=== PATIENT | male | born 1950 | race Caucasian/White ===

== ENCOUNTER → 2016-05-13 | Day surgery (SDC) | payer BC ==
[2016-05-03 13:23] VITALS: Ht 171.5 cm; Wt 80.9 kg
--- NOTE | 2016-05-12 12:48 | History and Physical: Surg Cnt ---
History & Physical Date May 12, 2016. Chief Complaint nasal and ears blocked, sinusitis History of Present Illness The patient is a 65 year old male with complaints of chronic sinusitis and blocked ears Allergies Coded Allergies: Dust Mite Extract (Verified Allergy, Mild, ITCHY WATERY EYES, NASAL CONGESTION, 05/03/16) POLLEN (Verified Allergy, Mild, ITCHY, WATERY EYES,NASAL CONGESTION, ) NO KNOWN DRUG ALLERGIES (Verified Allergy, Unknown, ., 05/03/16) Home Medications Scheduled Azelastine Hcl (Astepro), 1 SPRAY WILLIAM BID Calcium/Vitamin D (Os-Lam 500 Plus D), 1 TAB PO DAILY Cyanocobalamin (Vitamin B-12 1000 Mcg), 1,000 MCG PO DAILY Diclofenac/Misoprostol Del Rel (Arthrotec *), 75 MG PO BID Esomeprazole Magnesium (Nexium), 40 MG PO QAM Fish Oil ([place]-3), 1 CAP PO DAILY Fluticasone Furoate (Veramyst), 2 SPRY WILLIAM DAILY Fluticasone Prop/Salmeterol (Advair Diskus 250/50 Mcg *), 1 PUFF INH BID Guaifenesin (Guaifenesin), 400 MG PO TID Multiple Vitamin (Multivitamin), 1 TAB PO DAILY Saline (Saline Nasal [place]), 1 SPRAY WILLIAM UD Scheduled PRN Albuterol Hfa (Ventolin Hfa), 2-4 PUFFS INH Q6H PRN for SOB/Wheezing Fexofenadine Hcl (Ariadna *), 180 MG PO DAILY PRN for ALLERGIES Diagnosis chronic sinusitis, septal dev., and blocked eustachian tubes Plan of Treatment endoscopic sinus surgery, septoplasty, balloon eustachian tubes
[~2016-05-13] VITALS: Ht 171.5 cm; Wt 80.9 kg
[~2016-05-13] MED LIST: ADVIN25050 INH; ALL180 PO; ATROPINE SULFATE 0.1 MG/ML 5ML SYR IV PRN; AZEL0.15 NAE; BACITRACIN OINT 15 GM TUBE ONE; CALC500C70 PO; CEFAZOLIN 2000 MG/60 ML D5W IV SCH; CYAN10004 PO; DEXAMETHASONE SOD INJ 4 MG/ML VIAL ONE; EpHEDrine SULFATE INJ 50 MG/ML AMP IV PRN; EpINEphrine INJ 1MG/ML AMP 1 MG/ML AMP ONE; FENTANYL CITRATE INJ 50 MCG/1 ML 2 ML VIAL IV PRN; FENTANYL CITRATE INJ 50 MCG/1 ML 2 ML VIAL ONE; FLUMAZENIL 0.1 MG/1 ML 10 ML VIAL IV PRN; FLUT27.5 NAE; GELATIN SPONGE 12-7MM ONE; GUAI1TAB27 PO; HYDROCODONE/ACETAMOPHEN 5/325MG TAB PO PRN; HYDROmorphone INJ 2 MG/ML SYR/VIAL IV PRN; LABETALOL HCL IV 5 MG/ML 20ML IV PRN; LACTATED RINGER'S 1000ML 1,000 ML IV SCH; LIDO 2%/EPINEPHRINE 1:100000 20 ML VIAL INFIL ONE; LIDOCAINE 4% MPF SOAK 5 ML = 1 DOSE TOP ONE; LIDOCAINE HCL 2% 2 ML VIAL (20MG/ML) ONE; MEPERIDINE HCL 25 MG/ML CARP IV PRN; MIDAZOLAM HCL 1 MG/ML 2ML VIAL ONE; MULTTAB58 PO; NALOXONE HCL 0.4 MG/1 ML VIAL/CARP IV PRN; NXM/40 PO; OMEG10007 PO; ONDANSETRON INJ 2 MG/ML 2 ML VIAL IV PRN; ONDANSETRON INJ 2 MG/ML 2 ML VIAL ONE; OXYC-57 PO; OXYMETAZOLINE HCL 0.05% NA SPR 15 ML BTL SCH; PHENYLEPHRINE 100MCG/ML 5ML SYR IV PRN; PROPOFOL IV EMULSION 10 MG/ML 20 ML VIAL IV ONE; SALI1SPR3 NAE; SODIUM CHLORIDE 0.9% 1000ML 1,000 ML IV SCH; VNTHFA/IN INH; [UNRECOGNIZED DRUG - CODE] PO
--- NOTE | 2016-05-13 06:46 | History & Physical Bridge Note ---
H&P Re-Evaluation Bridge Note: I have examined the patient, reviewed the History & Physical and in the interval since the performance of the History & Physical I have noted the following changes of clinical significance: No changes noted
--- NOTE | 2016-05-13 10:58 | Discharge Instructions-SurgCtr ---
Discharge Instructions Visit Reason for Visit: Chronic Sinusitis, Septal Deviation, Blocked Eusta Discharge Discharge Diagnosis / Problem: same Discharge Goals Goal(s): Improve function Activity Recommendations Activity Limitations: resume your previous activity Anesthesia . Post Anesthesia Instructions: If you have had General Anesthesia or IV Sedation: * Do not drive today. * Resume driving when surgeon permits. * Do not make important decisions or sign legal documents today. * Call surgeon for: 1. Temperature elevations greater than 101 degrees F. 2. Uncontrollable pain. 3. Excessive bleeding. 4. Persistent nausea and vomiting. 5. Medication intolerance (nausea, vomiting or rash). * For nausea and vomiting use only clear liquids such as: tea, soda, bouillon until nausea subsides, then gradually increase diet as tolerated. * If you have any concerns or questions, call your surgeon's office. If physician is unavailable and it is an emergency, call 911 or go to the nearest emergency room. . Diet Recommendations Home Diet: no limitations Pending Studies Studies pending at discharge: no Medical Emergencies . Who to Call and When: Medical Emergencies: If at any time you feel your situation is an emergency, please call 911 immediately. . Non-Emergent Contact Non-Emergency issues call your: Primary Care Provider . . "Provider Documentation" section prepared by Megan Salomon. PA Drug Monitoring Program Search Results: no issues identified
--- NOTE | 2016-05-13 11:04 | Discharge Instructions-SurgCtr ---
Discharge Instructions Visit Reason for Visit: Chronic Sinusitis, Septal Deviation, Blocked Eusta Anesthesia . Post Anesthesia Instructions: If you have had General Anesthesia or IV Sedation: * Do not drive today. * Resume driving when surgeon permits. * Do not make important decisions or sign legal documents today. * Call surgeon for: 1. Temperature elevations greater than 101 degrees F. 2. Uncontrollable pain. 3. Excessive bleeding. 4. Persistent nausea and vomiting. 5. Medication intolerance (nausea, vomiting or rash). * For nausea and vomiting use only clear liquids such as: tea, soda, bouillon until nausea subsides, then gradually increase diet as tolerated. * If you have any concerns or questions, call your surgeon's office. If physician is unavailable and it is an emergency, call 911 or go to the nearest emergency room. . Instructions / Follow-Up Instructions / Follow-Up ACTIVITY RECOMMENDATIONS: * Being up and around is good, but no strenuous activity, heavy lifting or physical exertion for one week. * Keep your head elevated 30 degrees when lying down or sleeping. * Do not blow your nose for 48 hours, sniff back instead. * Avoid hot showers. OVER THE COUNTER MEDICATIONS: * You may use Tylenol * Avoid aspirin or aspirin containing products, e.g. as they may increase bleeding. SPECIAL CARE INSTRUCTIONS: * Expect to have bloody drainage from your nose and/or down your throat for one to three days. Change drip pad as needed. * Begin irrigating your nose with saline solution today, at least six to ten times per day and sniff back to help remove old clots or crust. * You may experience nasal and facial congestion, pain and pressure, this is normal. * Please call with any significant and/or progressive pain, redness, swelling around the eyes, visual changes, fever of 101.5 degrees F, active bleeding or any problems or concerns. * If active bleeding occurs, spray the nose three times at one minute intervals with Afrin spray and call or cell phone: . If unable to reach the doctor, go to the nearest Emergency Department. Special Diet: * Avoid extremely hot fluids. FOLLOW UP VISIT: Follow-up Visit with Dr. Salomon If not already scheduled, please call to schedule. Medical Emergencies . Who to Call and When: Medical Emergencies: If at any time you feel your situation is an emergency, please call 911 immediately. . Non-Emergent Contact . . "Provider Documentation" section prepared by Megan Salomon.
[2016-05-13 13:06] VITALS: TEMP 37.4
--- NOTE | 2016-05-13 13:20 | OPERATIVE REPORT ---
DATE OF OPERATION: 05/13/2016 PREOPERATIVE DIAGNOSES: Chronic sinusitis and eustachian tube dysfunction and septal deviation. POSTOPERATIVE DIAGNOSIS: Same. PROCEDURE: Right and left frontal, right and left sphenoid, right and left total ethmoid and right and left maxillary sinus antrostomies with endoscopic septoplasty and balloon dilation of the eustachian tubes. SURGEON: Dr. Salomon. ANESTHESIA: General LMA. COMPLICATIONS: None. BLOOD LOSS: 100 mL. HISTORY OF PRESENT ILLNESS: A 65-year-old gentleman with significant recurrent chronic sinusitis, previous turbinate resection and then antrostomies, adhesion on the right side of the septum, CT documented opacification. He also has complained of persistently blocked ears. DESCRIPTION OF PROCEDURE: The patient brought to the supine position. General anesthesia was induced using LMA, prepped, draped in usual sterile manner, BrainLAB device calibrated and used for the entire procedure. The right sphenoid cannulated guidewire, dilated using a 6 mm balloon as was the left sphenoid sinus. The sphenoids were irrigated clean with saline. The right nasofrontal duct was cannulated with guidewire, dilated using the 6 mm balloon. The guidewire was left in place as a marker. Frontal sinusotomy was performed by removing the anterior wall, then the posterior wall of the agger nasi cell. The guidewire was followed superiorly, removing the posterior wall of the agger nasi cell to open up the nasofrontal duct. At this point, total ethmoidectomy was performed opening up the bullae ethmoidalis going through the ground lamella into the posterior ethmoid air cells and finding the skull base and lamina papyracea with the BrainLAB device following these structures anteriorly exonerating all the posterior and all the anterior ethmoid air cells which were all filled with polypoid mucosa. Maxillary sinus was found using the seeker and then opened to a natural maxillary ostia using the shaver removing polypoid mucosa at the posterior border and at the anterior border. Sphenoid was opened by removing polypoid mucosa at the anterior face of the sphenoid. Left frontal sinusotomy, total ethmoidectomy, maxillary sinus antrostomy and sphenoidotomy was performed in a similar manner. At this point, the eustachian tubes were dilated with the 6 mm balloon using 12 atmospheric pressures dilating the eustachian tubes at 1 minute duration on each side. The endoscopic septoplasty was performed removing a large bony cartilaginous spur projecting to the right. The right [place] incision was made and mucoperichondrium was elevated off the right side of septum. Cartilage from the vomer maxillary crest inferiorly and anteriorly. The cartilage was carved, elevating the opposite mucoperichondrium, elevating bilateral posterior tunnels and then removing the cartilaginous and bony spur using the Vinod-Nunez rongeurs and removing a section of cartilage anteriorly that was bulged to the right side. Posteriorly, the bone spur to the right posteriorly was isolated via bilateral posterior tunnels and removed using the Vinod-Nunez rongeurs. At this point, Propel stents were placed and a single piece of Gelfoam on the right side of the septum was placed as packing. The patient tolerated the procedure well and was taken to recovery area in satisfactory condition. I attest to the content of the Intraoperative Record and any orders documented therein. Any exceptio ns are noted below.
--- NOTE | 2016-05-13 13:36 | Anesthesia Progress Nt - [facility] ---
Anesthesia Post Op Note Date & Time May 13, 2016 at 13:36 Vital Signs Pain Intensity: 3 Vital Signs Past 12 Hours Date Time Temp Pulse Resp B/P Pulse Ox O2 Delivery O2 Flow Rate FiO2 05/13/16 13:06 37.4 79 16 145/80 94 Room Air 05/13/16 12:55 37.3 76 16 142/78 96 Room Air 05/13/16 12:53 142/78 05/13/16 12:52 79 15 05/13/16 12:52 79 15 96 05/13/16 12:48 140/80 05/13/16 12:47 79 18 100 05/13/16 12:47 78 12 98 05/13/16 12:43 134/77 05/13/16 12:38 142/81 05/13/16 12:37 69 12 100 05/13/16 12:37 68 12 05/13/16 12:36 71 9 100 05/13/16 12:36 70 9 05/13/16 12:33 142/79 05/13/16 12:28 140/82 05/13/16 12:26 36.8 77 12 136/78 100 Humidified Oxygen 10 Diffusion Mask 05/13/16 12:26 77 10 100 05/13/16 12:26 76 11 100 05/13/16 09:18 36.6 73 18 155/81 97 Room Air Notes Mental Status: alert / awake / arousable, participated in evaluation Pt Amnestic to Procedure: Yes Nausea / Vomiting: adequately controlled Pain: adequately controlled Airway Patency, RR, SpO2: stable & adequate BP & HR: stable & adequate Hydration State: stable & adequate Anesthetic Complications: no major complications apparent
[2016-05-13 13:48] VITALS: BP 145/85; PULSE 82; O2SAT 97
== END | disposition home or self-care (01) ==
LOC: X.SURG 09:05
PROVIDERS: ATTEND Otolaryngology
DX: J34.2 Deviated nasal septum (principal); J32.9 Chronic sinusitis, unspecified; H69.83 Other specified disorders of Eustachian tube, bilateral

== ENCOUNTER → 2017-01-04 | Outpatient (CLI) | payer BC ==
[~2017-01-04] MED LIST changes: -ATROPINE SULFATE 0.1 MG/ML 5ML SYR IV PRN; -BACITRACIN OINT 15 GM TUBE ONE; -CEFAZOLIN 2000 MG/60 ML D5W IV SCH; -DEXAMETHASONE SOD INJ 4 MG/ML VIAL ONE; -EpHEDrine SULFATE INJ 50 MG/ML AMP IV PRN; -EpINEphrine INJ 1MG/ML AMP 1 MG/ML AMP ONE; -FENTANYL CITRATE INJ 50 MCG/1 ML 2 ML VIAL IV PRN; -FENTANYL CITRATE INJ 50 MCG/1 ML 2 ML VIAL ONE; -FLUMAZENIL 0.1 MG/1 ML 10 ML VIAL IV PRN; -GELATIN SPONGE 12-7MM ONE; -HYDROCODONE/ACETAMOPHEN 5/325MG TAB PO PRN; -HYDROmorphone INJ 2 MG/ML SYR/VIAL IV PRN; -LABETALOL HCL IV 5 MG/ML 20ML IV PRN; -LACTATED RINGER'S 1000ML 1,000 ML IV SCH; -LIDO 2%/EPINEPHRINE 1:100000 20 ML VIAL INFIL ONE; -LIDOCAINE 4% MPF SOAK 5 ML = 1 DOSE TOP ONE; -LIDOCAINE HCL 2% 2 ML VIAL (20MG/ML) ONE; -MEPERIDINE HCL 25 MG/ML CARP IV PRN; -MIDAZOLAM HCL 1 MG/ML 2ML VIAL ONE; -NALOXONE HCL 0.4 MG/1 ML VIAL/CARP IV PRN; -ONDANSETRON INJ 2 MG/ML 2 ML VIAL IV PRN; -ONDANSETRON INJ 2 MG/ML 2 ML VIAL ONE; -OXYC-57 PO; -OXYMETAZOLINE HCL 0.05% NA SPR 15 ML BTL SCH; -PHENYLEPHRINE 100MCG/ML 5ML SYR IV PRN; -PROPOFOL IV EMULSION 10 MG/ML 20 ML VIAL IV ONE; -SODIUM CHLORIDE 0.9% 1000ML 1,000 ML IV SCH
[2017-01-04 09:28] LABS: BASO % 0.6 %; BASO ABS # 0.03 K/uL (0-0.2); COMPLETE YES; EOS % 2.8 %; HEMATOCRIT 35.1 % (42-52); IG% 0.2 %; LYMPH % 29.6 %; LYMPH ABS # 1.47 K/uL (1.2-3.4); MEAN CORPUSCULAR HGB CONC 33.3 g/dl (32-36); MONO % 9.9 %; NEUT % 56.9 %; PLATELET COUNT 188 K/uL (130-400); RED BLOOD COUNT 3.44 M/uL (4.7-6.1); WHITE BLOOD COUNT 4.96 K/uL (4.8-10.8)
[2017-01-04 09:57] LABS: ALB/GLOB RATIO 1.4 (0.9-2); ALT/SGPT 36 U/L (12-78); AST/SGOT 20 U/L (15-37); BLOOD UREA NITROGEN 15 mg/dl (7-18); BUN/CREATININE RATIO 15.9 (10-20); CALCIUM 9.3 mg/dl (8.5-10.1); CARBON DIOXIDE 32 mmol/L (21-32); CHLORIDE 105 mmol/L (98-107); CHOLESTEROL 185 mg/dl (0-200); CHOLESTEROL/HDL RATIO 2.8; CREATININE 0.94 mg/dl (0.60-1.40); GLUCOSE 96 mg/dl (70-99); HDL CHOLESTEROL 67 mg/dl; LDL CHOLESTEROL CALCULATED 91 mg/dl; SODIUM 140 mmol/L (136-145); TRIGLYCERIDES 133 mg/dl (0-150); VERY LOW DENSITY LIPOPROT CALC 27 mg/dl
[2017-01-04 10:03] LABS: ALKALINE PHOSPHATASE 86 U/L (45-117); PROSTATE SPECIFIC ANTIGEN 0.888 ng/ml (0.000-4.000); TOTAL IRON BINDING CAPACITY 335 mcg/dl (250-450)
[2017-01-04 10:33] LABS: ESTIMATED AVERAGE GLUCOSE 105 mg/dl; HA1C FLAG Normal (Normal)
== END | disposition home or self-care (01) ==
LOC: C.LAB 08:31
PROVIDERS: ATTEND Family Medicine
DX: N40.0 Benign prostatic hyperplasia without lower urinary tract symptoms (principal); R73.09 Other abnormal glucose; E55.9 Vitamin D deficiency, unspecified; E78.9 Disorder of lipoprotein metabolism, unspecified; R53.83 Other fatigue; D51.9 Vitamin B12 deficiency anemia, unspecified

== ENCOUNTER → 2017-03-22 | Outpatient (CLI) | payer BC ==
[~2017-03-22] MED LIST changes: -GUAI1TAB27 PO; +GUAI400T44 PO
[2017-03-22 09:38] LABS: BASO % 0.3 %; BASO ABS # 0.01 K/uL (0-0.2); COMPLETE YES; EOS % 1.7 %; HEMATOCRIT 27.6 % (42-52); LYMPH % 27.8 %; LYMPH ABS # 0.99 K/uL (1.2-3.4); MEAN CELL VOLUME 99.6 fL (80-100); MEAN CORPUSCULAR HEMOGLOBIN 33.2 pg (25-34); MEAN CORPUSCULAR HGB CONC 33.3 g/dl (32-36); MEAN PLATELET VOLUME 10.5 fL (7.4-10.4); NEUT % 54.2 %; PLATELET COUNT 196 K/uL (130-400); RED BLOOD COUNT 2.77 M/uL (4.7-6.1); WHITE BLOOD COUNT 3.56 K/uL (4.8-10.8)
== END | disposition home or self-care (01) ==
LOC: C.LAB 08:36
PROVIDERS: ATTEND Family Medicine
DX: D64.9 Anemia, unspecified (principal)

== ENCOUNTER → 2017-03-24 | Outpatient (CLI) | payer BC ==
[2017-03-25 14:42] LABS: ALBUMIN 4.2 G/DL (3.8-4.8); GAMMA GLOBULIN 0.5 G/DL (0.8-1.7); TOTAL PROTEIN 6.4 G/DL (6.2-8.3)
== END | disposition home or self-care (01) ==
LOC: C.LAB 08:43
PROVIDERS: ATTEND Family Medicine
DX: D64.9 Anemia, unspecified (principal)

== ENCOUNTER → 2017-04-01 | Outpatient (CLI) | payer BC ==
[~2017-04-01] MED LIST changes: +ADVIN25/60 INH; +DICLTAB4 PO; +FLUT50SP45 NAE
== END | disposition home or self-care (01) ==
LOC: C.LAB 12:23
PROVIDERS: ATTEND Family Medicine
DX: D64.9 Anemia, unspecified (principal)

== ENCOUNTER → 2017-04-20 | Day surgery (SDC) | payer BC ==
[2017-04-04 09:58] VITALS: Ht 171.5 cm; Wt 80.9 kg
[~2017-04-20] VITALS: Ht 171.5 cm; Wt 80.9 kg
[~2017-04-20] MED LIST changes: -ADVIN25050 INH; -ALL180 PO; -CALC500C70 PO; -CYAN10004 PO; +FENTANYL CITRATE INJ 50 MCG/1 ML 2 ML VIAL ONE; -FLUT27.5 NAE; +LIDOCAINE HCL 2% 2 ML VIAL (20MG/ML) ONE; +PROPOFOL IV EMULSION 10 MG/ML 20 ML VIAL IV ONE; -SALI1SPR3 NAE; +SODIUM CHLORIDE 0.9% 500ML 500 ML IV ONE; -[UNRECOGNIZED DRUG - CODE] PO
--- NOTE | 2017-04-20 13:40 | Endo History and Physical ---
History & Physical Date of Service: Apr 20, 2017. Chief Complaint: Anemia, GERD Referring Physician: Tommy Sandy History of Present Illness 66 yo CM who presents for EGD and Colonoscopy secondary to GERD and anemia. Past Surgical History Hx Cardiac Surgery: No Hx Internal Defibrillator: No Hx Pacemaker: No Hx Abdominal Surgery: Yes (DOUBLE INGUINAL HERNIA REPAIR) Hx of Implantable Prosthesis: No Hx Post-Op Nausea and Vomiting: No Hx Cancer Surgery: No Hx Thoracic Surgery: No Hx Orthopedic: Yes (LT WRIST/ELBOW SURGERY) Hx Urinary Tract Surgery: No Family History None Social History Smoking Status: Current Every Day Smoker Hx Substance Use: No Hx Alcohol Use: Yes (8 DRINKS/WEEK) Allergies Coded Allergies: Dust Mite Extract (Verified Allergy, Mild, ITCHY WATERY EYES, NASAL CONGESTION, 04/04/17) POLLEN (Verified Allergy, Mild, ITCHY, WATERY EYES,NASAL CONGESTION, 04/04) NO KNOWN DRUG ALLERGIES (Verified Allergy, Unknown, ., 04/04/17) Current Medications Reported Home Medications Medications Dose Route/Sig Max Daily Dose Days Date Category Dose Instructions Allergy Nasal [place] 24 Ho (Fluticasone Propionate (Nasal)) 50 Mcg/Act Spr 1 [place] WILLIAM DAILY PRN 04/04/17 Reported Advair Diskus 250/50 60 Dose (Fluticasone Prop/Salmeterol) 1 Ea Aerp 1 Puff INH BID 04/04/17 Reported Arthrotec (Diclofenac W/ Misoprostol) 1 Tab Tab 1 Tab PO BID 04/04/17 Reported ON HOLD CURRENTLY Ventolin Hfa (Albuterol) 200 Puffs/29905 Mcg Aers 2-4 Puffs INH Q6H PRN 05/03/16 Reported [place]-3 (Fish Oil) 1 Ea Cap 1 Cap PO DAILY 05/03/16 Reported Multivitamin (Multiple Vitamin) 1 Tab Tab 1 Tab PO DAILY 05/03/16 Reported Guaifenesin 400 Mg Tab 400 Mg PO TID 01/07/14 Reported Astepro (Azelastine Hcl) 0.15 % Spr 1 [place] WILLIAM BID PRN 01/07/14 Reported Nexium (Esomeprazole Magnesium) 40 Mg Capcr 40 Mg PO QAM 04/13/10 Reported Vital Signs Weight (Kilograms): 80.91 Height (Feet): 5 Height (Inches): 7.5 Date Time Temp Pulse Resp B/P (MAP) Pulse Ox O2 Delivery O2 Flow Rate FiO2 04/20/17 13:20 36.9 90 18 133/64 (87) 100 Room Air Physical Exam General Appearance: WD/WN, no apparent distress Respiratory/Chest: Auscultation: breath sounds normal Cardiovascular: Heart Auscultation: RRR Abdomen: Bowel Sounds: normal Inspection & Palpation: soft, non-distended, no tenderness, guarding & rebound Assessment and Plan Assessment: 66 yo CM who presents for EGD and Colonoscopy secondary to GERD and anemia. Plan: Proceed with EGD and colonoscopy.
--- NOTE | 2017-04-20 14:15 | GI REPORT ---
Procedure Date: 04/20/2017 1:44 PM Procedure: Upper GI endoscopy Indications: Suspected gastro-esophageal reflux disease Medicines: Monitored Anesthesia Care Complications: No immediate complications. Estimated Blood Loss: Estimated blood loss: none. Procedure: Pre-Anesthesia Assessment: - Prior to the procedure, a History and Physical was performed, and patient medications and allergies were reviewed. The patient's tolerance of previous anesthesia was also reviewed. The risks and benefits of the procedure and the sedation options and risks were discussed with the patient. All questions were answered, and informed consent was obtained. Prior Anticoagulants: The patient has taken no previous anticoagulant or antiplatelet agents. ASA Grade Assessment: III - A patient with severe systemic disease. After reviewing the risks and benefits, the patient was deemed in satisfactory condition to undergo the procedure. After obtaining informed consent, the endoscope was passed under direct vision. Throughout the procedure, the patient's blood pressure, pulse, and oxygen saturations were monitored continuously. The scope was introduced through the mouth, and advanced to the second part of duodenum. The upper GI endoscopy was accomplished without difficulty. The patient tolerated the procedure well. Findings: Diffuse candidiasis was found in the entire esophagus. Cells for cytology were obtained by brushing. The stomach was normal. The examined duodenum was normal. Impression: - Monilial esophagitis. Cells for cytology obtained. - Normal stomach. - Normal examined duodenum. Recommendation: - Resume previous diet. - Continue present medications. - Diflucan (fluconazole) 400 mg PO daily for 1 day, then 200mg by mouth daily for 20 days. - Await results from esophageal brushings. Rupert Germain, DO 04/20/2017 2:14:07 PM This report has been signed electronically. Note Initiated On: 04/20/2017 1:44 PM I attest to the content of the Intraoperative Record and orders documented therein, exceptions below
--- NOTE | 2017-04-20 14:20 | GI REPORT ---
Procedure Date: 04/20/2017 1:52 PM Procedure: Colonoscopy Indications: Iron deficiency anemia Medicines: Monitored Anesthesia Care Complications: No immediate complications. Estimated Blood Loss: Estimated blood loss: none. Procedure: Pre-Anesthesia Assessment: - Prior to the procedure, a History and Physical was performed, and patient medications and allergies were reviewed. The patient's tolerance of previous anesthesia was also reviewed. The risks and benefits of the procedure and the sedation options and risks were discussed with the patient. All questions were answered, and informed consent was obtained. Prior Anticoagulants: The patient has taken no previous anticoagulant or antiplatelet agents. ASA Grade Assessment: III - A patient with severe systemic disease. After reviewing the risks and benefits, the patient was deemed in satisfactory condition to undergo the procedure. After I obtained informed consent, the scope was passed under direct vision. Throughout the procedure, the patient's blood pressure, pulse, and oxygen saturations were monitored continuously. The Scope was introduced through the anus and advanced to the terminal ileum. The colonoscopy was performed without difficulty. The patient tolerated the procedure well. The quality of the bowel preparation was good. The terminal ileum, ileocecal valve, appendiceal orifice, and rectum were photographed. Findings: A 5 mm polyp was found in the rectum. The polyp was sessile. The polyp was removed with a cold snare. Resection and retrieval were complete. Non-bleeding internal hemorrhoids were found during retroflexion. The hemorrhoids were small. Impression: - One 5 mm polyp in the rectum, removed with a cold snare. Resected and retrieved. - Non-bleeding internal hemorrhoids. Recommendation: - Resume previous diet. - Continue present medications. - Repeat colonoscopy for surveillance based on pathology results. - Return to primary care physician as previously scheduled. Rupert Germain DO 04/20/2017 2:19:41 PM This report has been signed electronically. Note Initiated On: 04/20/2017 1:52 PM I attest to the content of the Intraoperative Record and orders documented therein, exceptions below
--- NOTE | 2017-04-20 14:22 | Discharge Instructions ---
Endoscopy Patient Instructions Date / Procedure(s) Performed Apr 20, 2017. Colonoscopy, EGD Allergy Information Coded Allergies: Dust Mite Extract (Verified Allergy, Mild, ITCHY WATERY EYES, NASAL CONGESTION, 04/04/17) POLLEN (Verified Allergy, Mild, ITCHY, WATERY EYES,NASAL CONGESTION, 04/04) NO KNOWN DRUG ALLERGIES (Verified Allergy, Unknown, ., 04/04/17) Discharge Date / Findings Apr 20, 2017. 1) EGD: Karlie esophagitis s/p brushings 2) Colonoscopy: Rectal polyp, Internal hemorrhoids Medication Instructions 1) Start Diflucan 400mg by mouth today, then 200mg by mouth daily for 20 days. 2) OK to resume all other medications today as prescribed Reported Home Medications Medications Dose Route/Sig Max Daily Dose Days Date Category Dose Instructions Allergy Nasal [place] 24 Ho (Fluticasone Propionate (Nasal)) 50 Mcg/Act Spr 1 [place] WILLIAM DAILY PRN 04/04/17 Reported Advair Diskus 250/50 60 Dose (Fluticasone Prop/Salmeterol) 1 Ea Aerp 1 Puff INH BID 04/04/17 Reported Arthrotec (Diclofenac W/ Misoprostol) 1 Tab Tab 1 Tab PO BID 04/04/17 Reported ON HOLD CURRENTLY Ventolin Hfa (Albuterol) 200 Puffs/69662 Mcg Aers 2-4 Puffs INH Q6H PRN 05/03/16 Reported [place]-3 (Fish Oil) 1 Ea Cap 1 Cap PO DAILY 05/03/16 Reported Multivitamin (Multiple Vitamin) 1 Tab Tab 1 Tab PO DAILY 05/03/16 Reported Guaifenesin 400 Mg Tab 400 Mg PO TID 01/07/14 Reported Astepro (Azelastine Hcl) 0.15 % Spr 1 [place] WILLIAM BID PRN 01/07/14 Reported Nexium (Esomeprazole Magnesium) 40 Mg Capcr 40 Mg PO QAM 04/13/10 Reported Provider Instructions Activity Restrictions - No exercising or heavy lifting for 24 hours. - Do not drink alcohol the day of the procedure. - Do not drive a car or operate machinery until the day after the procedure. - Do not make any important decisions or sign important papers in 24 hours after the procedure. Following Day: - Return to full activity which may include returning to work/school. Diet Start your diet with liquids and light foods (jello, soup, juice, toast). Then eat your usual diet if not nauseated. Treatment For Common After Affects For mild abdominal pain, bloating, or excessive gas: - Rest - Eat lightly - Lie on right side Follow-Up Information Follow-up with Tommy Sandy as scheduled Anesthesia Information What You Should Know You have had a procedure that required some medicine to reduce anxiety and discomfort. This treatment is called moderate sedation. After receiving the treatment, you may be sleepy, but you will be able to breathe on your own. The effects of the treatment may last for several hours. Follow these instructions along with Activity/Diet recommendations noted above: * Do NOT do anything where dizziness or clumsiness would be dangerous. * Rest quietly at home today, then you can be up and about tomorrow. * Have a responsible person stay with you the rest of today. * You may have had an I.V. today. If so, you may take the dressing off later today. Recommendations Call your doctor if: * Trouble breathing * Continuous vomiting for more than 24 hours * Temperature above 101 degrees * Severe abdominal pain or bloating * Pain not relieved by pain medicine ordered * There is increased drainage or redness from any incision * A large amount of rectal bleeding greater than 2-3 tablespoons. (If you had a polyp/s removed or have hemorrhoids, a small amount of blood - from the rectum is to be expected.) * You have any unanswered questions or concerns. IN THE EVENT OF A SERIOUS EMERGENCY, GO TO THE NEAREST EMERGENCY ROOM Your discharge instructions were prepared by provider Rupert Germain. Patient Instructions Signature Page Awais Armstrong Patient (or Guardian) Signature/Date: I have read and understand the instructions given to me by my caregivers. Caregiver/RN/Doctor Signature/Date: The above-named patient and/or guardian has received patient instructions on this date. + Original Patient Signature Page (only) stays with chart. Please make copy for patient.
--- NOTE | 2017-04-20 14:22 | Anesthesiology Progress Note ---
Anesthesia Post Op Note Date & Time Apr 20, 2017 at 14:22 Vital Signs Vital Signs Past 12 Hours Date Time Temp Pulse Resp B/P (MAP) Pulse Ox O2 Delivery O2 Flow Rate FiO2 04/20/17 13:20 36.9 90 18 133/64 (87) 100 Room Air Notes Mental Status: alert / awake / arousable, participated in evaluation Pt Amnestic to Procedure: Yes Nausea / Vomiting: adequately controlled Pain: adequately controlled Airway Patency, RR, SpO2: stable & adequate BP & HR: stable & adequate Hydration State: stable & adequate Anesthetic Complications: no major complications apparent Awake, doing well.
[2017-04-20 14:45] VITALS: BP 129/70; PULSE 83; O2SAT 100
== END | disposition home or self-care (01) ==
LOC: C.GI 12:52
PROVIDERS: ATTEND Internal Medicine
DX: B37.81 Candidal esophagitis (principal); K62.1 Rectal polyp; K21.9 Gastro-esophageal reflux disease without esophagitis; D50.9 Iron deficiency anemia, unspecified; K64.8 Other hemorrhoids; F17.200 Nicotine dependence, unspecified, uncomplicated; Z90.89 Acquired absence of other organs; J45.909 Unspecified asthma, uncomplicated; M19.90 Unspecified osteoarthritis, unspecified site